=== PATIENT | male | born 1950 | race Caucasian/White ===

== ENCOUNTER 2022-02-08 12:43 | Emergency (ER) | payer MEDICARE, OTHER, SELFPAY ==
[2022-02-08] VITALS (17 sets, daily range): BP systolic 109–145; BP diastolic 56–72; PULSE 91–102; RESP 12–25; TEMP 36.7; O2SAT 88–100; BMI 31.8
--- NOTE | 2022-02-08 13:08 | DI.RAD.S_ITS ---
PROCEDURE: XR CHEST 2V INDICATIONS: shortness of breath TECHNIQUE: 2 views of the chest were acquired. COMPARISON: None. FINDINGS: Surgical changes and devices: Right-sided Port-A-Cath is present distal tip projecting over the proximal SVC. Lungs and pleura: Diffuse bilateral pulmonary opacities. Mediastinum: Mediastinal contours are normal. Heart size is normal. Bones and chest wall: No suspicious bony abnormalities. Soft tissues appear unremarkable. IMPRESSION: Diffuse bilateral pulmonary opacities could represent widespread pneumonia. However, other etiologies such as interstitial mass lesions and/or effusions cannot be excluded. Dictated by: Galina Lopez M.D. on 02/08/2022 at 14:19 Approved by: Galina Lopez M.D. on 02/08/2022 at 14:19
[2022-02-08 13:40] LABS: Add Manual Diff / Slide Review NO; Basophils Absolute Auto 0 /uL (0-100); Eosinophils Absolute Auto 100 /uL (0-450); Eosinophils Percent Auto 1.2 % (2-4); Hematocrit 31.2 % (41-53); Hemoglobin 10.3 g/dL (13.5-17.5); Lymphocytes Absolute Auto 400 /uL (1100-4500); Lymphocytes Percent Auto 8.6 % (25-40); Mean Corpuscular Hemoglobin 26.4 PG (26-34); Mean Corpuscular Volume 79.8 fL (80-100); Monocytes Absolute Auto 200 /uL (0-900); Monocytes Percent Auto 4.5 % (3-14); Neutrophils Absolute Auto 3700 /uL (1500-7000); Neutrophils Percent Auto 84.7 % (50-75); Platelet Count 202 X10^3/uL (150-400); White Blood Cell Count 4.4 X10^3/uL (4.5-11.0)
[2022-02-08 13:55] LABS: Lactate (Lactic Acid) 2.2 mmol/L (0.7-2.1)
[2022-02-08 13:57] LABS: Alanine Aminotransferase 14 IU/L (<50); Albumin 3.6 g/dL (3.5-5.0); Albumin Globulin Ratio 1.4 (1.0-2.8); Alkaline Phosphatase 207 U/L (38-126); Aspartate Aminotransferase 46 IU/L (17-59); BUN Creatinine Ratio 16.3 (6-22); Bilirubin Total 0.2 mg/dL (0.2-1.3); Blood Urea Nitrogen 21 mg/dL (9-20); Calcium 8.4 mg/dL (8.4-10.2); Carbon Dioxide 28 mmol/L (22-32); Chloride 101 mmol/L (98-107); Estimated Glomerular Filt Rate 59 mL/min (>60); Globulin 2.5 g/dL (1.7-4.1); Glucose 127 mg/dL (80-110); HEMOLYSIS < 15 (0-50); Potassium 4.7 mmol/L (3.4-5.1); Sodium 136 mmol/L (137-145); Total Protein 6.1 g/dL (6.3-8.2)
[2022-02-08 14:06] LABS: NT-proBNP (BNP-Adult 18+) 144 pg/mL (<125); Troponin I < 0.012 ng/mL (0.01-0.034)
--- NOTE | 2022-02-08 14:10 | PC.NURSE ---
Triage nurse CD asked that I request records for this patient at [facility] for recent admission. In talking to the patient they believe they were admitted 01/29/22 and discharged 02/02/22. I printed [facility] authorization to release protected health information. I filled out the document and explained what the document was to the patient and his . The patient signed the document and the signed it as the witness. I faxed the request to [phone] the designated medical records line.
[2022-02-08 15:37] LABS: Reflexed Lactate in 2 Hours Y
--- NOTE | 2022-02-08 17:12 | ED_ITS ---
HPI - General Adult General Chief complaint: Shortness of Breath/Dyspnea Stated complaint: Edema, Spreading Time Seen by Provider: 02/08/22 16:33 Source: patient and family Mode of arrival: Wheelchair Related Data Previous Rx's Medication Instructions Recorded furosemide 40 mg tablet (Lasix) 40 mg PO BID 5 Days #10 tab 02/08/22 Allergies Allergy/AdvReac Type Severity Reaction Status Date / Time Penicillins Allergy Verified 02/08/22 13:07 Review of Systems Review of Systems ROS Unobtainable: All systems reviewed & are unremarkable except as noted in HPI and below Patient History Social History Smoking Status: Former smoker Smoking Status: Former smoker alcohol intake frequency: holidays/special occasions only Substance Use Type: does not use Exam Narrative Exam Narrative: GENERAL: Alert and oriented x three, elderly male in mild distress. HEENT: Head normocephalic, atraumatic, EOMI, pupils reactive, face symmetric, moist mucous membranes NECK: Supple, full range of motion CARDIOVASCULAR: Regular rate and rhythm without murmurs, rubs or gallops. Mild JVD. RESPIRATORY: Breath sounds equal bilaterally, no wheezes rales or rhonchi. No tachypnea accessory muscle use. ABDOMEN: Soft, nontender. Normoactive bowel sounds all 4 quadrants. No guarding or rebound, rigidity, no mass : No CVA tenderness EXTREMITIES: Normal range of motion, patient has 2+ bilateral lower extremity edema, edema extends up into the scrotum and lower back as well. Neurovascularly intact NEUROLOGICAL: Cranial nerves II through XII grossly intact. Moving all extremities SKIN: Warm, dry, no petechiae, no rashes or lesions. Initial Vital Signs Initial Vital Signs: Vital Signs Temperature 98.1 F 02/08/22 12:50 Pulse Rate 97 H 02/08/22 12:50 Respiratory Rate 20 02/08/22 12:50 Blood Pressure 139/68 02/08/22 12:50 Pulse Oximetry 100 02/08/22 12:50 Course Orders Ordered: Discontinued Medications Furosemide (Furosemide 40 Mg/4 Ml Vial) 40 mg IV NOW ONE Stop: 02/08/22 19:19 Last Admin: 02/08/22 19:22 Dose: 40 mg Documented by: KARO Heparin Sodium (Porcine) (Heparin 500 Unit/5 Ml Port Flush) 500 unit IV PRN PRN PRN Reason: Flush Last Admin: 02/08/22 19:22 Dose: 500 unit Documented by: KARO Reevaluation(s) Reevaluation #1: Reviewed patient's labs and findings. His visit at [place] at the beginning of the month patient summary was obtained and shows that patient had possible pneumonia but had changes on imaging concerning for neoplastic cause of his pneumonia, patient was not found to be in true CHF but was given a diuretic and discharged home on oral antibiotics as well as diuretic. He is supposed to be seen at [facility] in [place] next week to have scans in order to be entered into a trial for his metastatic prostate cancer. Currently visiting the area while waiting to have his scans placed. Vital Signs Vital signs: Vital Signs - 8 hr 02/08/22 12:50 02/08/22 13:13 02/08/22 13:30 Temperature 98.1 F Pulse Rate 97 H 96 H 96 H Respiratory Rate 20 18 Blood Pressure 139/68 112/56 L Pulse Oximetry 100 97 98 02/08/22 14:30 02/08/22 14:34 02/08/22 15:00 Temperature Pulse Rate 96 H 100 H 97 H Respiratory Rate 17 20 22 Blood Pressure 145/72 H 129/71 Pulse Oximetry 96 98 100 02/08/22 15:30 Temperature Pulse Rate 95 H Respiratory Rate 16 Blood Pressure Pulse Oximetry 95 Medical Decision Making Lab Data Result diagrams: 02/08/22 13:30 02/08/22 13:30 Labs: Lab Results 02/08/22 02/08/22 02/08/22 Range/Units 13:30 13:30 13:30 WBC 4.4 L (4.5-11.0) X10^3/uL RBC 3.90 L (4.5-5.9) X10^6/uL Hgb 10.3 L (13.5-17.5) g/dL Hct 31.2 L (41-53) % MCV 79.8 L (80-100) fL MCH 26.4 (26-34) PG MCHC 33.0 (30-36) % RDW 17.0 H (11.6-14.8) % Plt Count 202 (150-400) X10^3/uL Neut % (Auto) 84.7 H (50-75) % Lymph % (Auto) 8.6 L (25-40) % [place] % (Auto) 4.5 (3-14) % Eos % (Auto) 1.2 L (2-4) % Baso % (Auto) 1.0 (0-2) % Neut # (Auto) 3700 (2512-3917) /uL Lymph # (Auto) 400 L (4564-3420) /uL [place] # (Auto) 200 (0-900) /uL Eos # (Auto) 100 (0-450) /uL Baso # (Auto) 0 (0-100) /uL Sodium 136 L (137-145) mmol/L Potassium 4.7 (3.4-5.1) mmol/L Chloride 101 (98-107) mmol/L Carbon Dioxide 28 (22-32) mmol/L BUN 21 H (9-20) mg/dL Creatinine 1.29 H (0.66-1.25) mg/dL Estimated GFR 59 L (>60) mL/min BUN/Creatinine Ratio 16.3 (6-22) Glucose 127 H (80-110) mg/dL Lactate 2.2 H (0.7-2.1) mmol/L Calcium 8.4 (8.4-10.2) mg/dL Total Bilirubin 0.2 (0.2-1.3) mg/dL AST 46 (17-59) IU/L ALT 14 (<50) IU/L Alkaline Phosphatase 207 H (38-126) U/L Troponin I (0.01-0.034) ng/mL NT-Pro-B Natriuret Pep (<125) pg/mL Total Protein 6.1 L (6.3-8.2) g/dL Albumin 3.6 (3.5-5.0) g/dL Globulin 2.5 (1.7-4.1) g/dL Albumin/Globulin Ratio 1.4 (1.0-2.8) SARS-CoV-2 (PCR) (Negative) 02/08/22 02/08/22 02/08/22 Range/Units 13:30 16:12 17:26 WBC (4.5-11.0) X10^3/uL RBC (4.5-5.9) X10^6/uL Hgb (13.5-17.5) g/dL Hct (41-53) % MCV (80-100) fL MCH (26-34) PG MCHC (30-36) % RDW (11.6-14.8) % Plt Count (150-400) X10^3/uL Neut % (Auto) (50-75) % Lymph % (Auto) (25-40) % [place] % (Auto) (3-14) % Eos % (Auto) (2-4) % Baso % (Auto) (0-2) % Neut # (Auto) (4134-5993) /uL Lymph # (Auto) (7164-1673) /uL [place] # (Auto) (0-900) /uL Eos # (Auto) (0-450) /uL Baso # (Auto) (0-100) /uL Sodium (137-145) mmol/L Potassium (3.4-5.1) mmol/L Chloride (98-107) mmol/L Carbon Dioxide (22-32) mmol/L BUN (9-20) mg/dL Creatinine (0.66-1.25) mg/dL Estimated GFR (>60) mL/min BUN/Creatinine Ratio (6-22) Glucose (80-110) mg/dL Lactate 2.0 (0.7-2.1) mmol/L Calcium (8.4-10.2) mg/dL Total Bilirubin (0.2-1.3) mg/dL AST (17-59) IU/L ALT (<50) IU/L Alkaline Phosphatase (38-126) U/L Troponin I < 0.012 (0.01-0.034) ng/mL NT-Pro-B Natriuret Pep 144 H (<125) pg/mL Total Protein (6.3-8.2) g/dL Albumin (3.5-5.0) g/dL Globulin (1.7-4.1) g/dL Albumin/Globulin Ratio (1.0-2.8) SARS-CoV-2 (PCR) Negative (Negative) Imaging Data Chest x-ray: Radiologist's Impression: Close Chest X-Ray (Signed) Galina Lopez - 02/08/[address] [address] XRay Report Signed Patient: Alon Rios MR#: [id number] : 1950 Acct:[id number] Age/Sex: 71 / M Date of Service: 02/08/22 Loc: ED Accession Number: [id number] ?? Procedure: XR chest 2V Ordering Provider: Michelle Padilla D.O. PROCEDURE:? XR CHEST 2V ? INDICATIONS:? shortness of breath ? TECHNIQUE:? 2 views of the chest were acquired.? ? COMPARISON:? None. ? FINDINGS:? ? Surgical changes and devices:? Right-sided Port-A-Cath is present distal tip projecting over the proximal SVC. ? Lungs and pleura:? Diffuse bilateral pulmonary opacities. ? Mediastinum:? Mediastinal contours are normal.? Heart size is normal.? ? Bones and chest wall:? No suspicious bony abnormalities.? Soft tissues appear unremarkable.? ? IMPRESSION:? Diffuse bilateral pulmonary opacities could represent widespread pneumonia.? However, other etiologies such as interstitial mass lesions and/or effusions cannot be excluded. ? ? Dictated by: Galina Lopez M.D. on 02/08/2022 at 14:19 ? ? Approved by: Galina Lopez M.D. on 02/08/2022 at 14:19?? ECG Data Attestation: I personally reviewed and interpreted this ECG as follows: Interpretation: Sinus rhythm, rate of 98, P are 164 QRS of 98 QTC 454. Patient is left axis deviation. No acute ST elevation depression noted. No priors for comparison. MDM Narrative Medical decision making narrative: This is a 71-year-old male with known metastatic prostate cancer. Patient has had appears to be a bump in his creatinine was 0.9 on January 22 these 1.29 today he has been on Lasix since his discharge, CT this does show any new obstructive changes clearly I suspect it is more related to his medications. He is quite ed ematous his BNP is normal, no acute EKG or troponin changes. He is not hypoxic, tachycardic or having other significant changes. CT angio was included no signs of PE. Patient is anemic, no signs of sepsis. COVID negative. Discussed with patient offered observation they would like to return home they are staying locally with friends. He was given a disc with his images as he is supposed to be seen at [facility] in order to have scanning to be enrolled in a trial. His chest x-ray shows possible pneumonia but I suspect this is more neoplastic and he has a large hilar mass, these findings were discussed with the patient and we discussed antibiotic but ultimately held these as less likely to be an infectious cause at the moment. Patient was given strict return precautions. He was asked to have his creatinine rechecked this week, he can follow with his physician he is established with at [facility] a her return to our cells is his primary care physician is in [place], [place] in [place]. Patient feels comfortable with this plan is at bedside also expresses her understanding and comfort. Discharge Plan Departure Patient Disposition: Home Clinical Impression: Bilateral lower extremity edema, Creatinine elevation Activity Restrictions/Additional Instructions: Your imaging today shows no blood clots but changes in the perihilar or chest region and bronchoscopy is recommended. The ureteral stent on the left appears in place, no obvious obstructions to the kidney today. There is a disc of your images with the CT angiography of your chest and CT of your abdomen and pelvis included. Your labs do not reflect changes consistent with congestive heart failure but I do think diuretics would be helpful. You may increase your Lasix to 40 mg twice daily. As discussed this can make your renal function were so your creatinine needs to be rechecked by Friday or Friday. You can return here for recheck, additional option would include contacting [facility] and they may be able to order repeat labs as an outpatient. Prescription was sent to [facility]. Please return for worsening symptoms rapidly worsening swelling, new chest pain, shortness of breath, lightheadedness or passing out, difficulty with urination or other new or concerning symptoms. Prescriptions: New furosemide [Lasix] 40 mg tablet 40 mg PO BID 5 Days Qty: 10 0RF Referrals: Miscellaneous,Doctor, MD [Primary Care Provider] -
--- NOTE | 2022-02-08 17:39 | DI.CT.S_ITS ---
PROCEDURE: CT KIDNEY URETER BLADDER (KUB) INDICATIONS: back pain, dheeraj, known ureteral stent TECHNIQUE: Axial sections were acquired from the lung bases to the pubic symphysis. Coronal and sagittal reformats were performed. For radiation dose reduction, the following was used: automated exposure control, adjustment of mA and/or kV according to patient size. COMPARISON: [facility], CT, CT ANGIO CHEST PE PROTOCOL, 02/08/2022, 17:45. FINDINGS: Image quality: Excellent. Lung bases: Bibasilar airspace opacity and pulmonary nodules are present. Left perihilar mass. Mediastinal and hilar adenopathy is present. Heart: Calcification of the coronary vasculature. URINARY: Moderate right hydronephrosis. Right proximal ureter is dilated. Left ureteral stent is present. Mild left hydronephrosis is present. Bladder: Normal wall thickness. No stones. ABDOMEN: Liver: Unremarkable. Gallbladder: Unremarkable. Biliary ducts: Unremarkable. Pancreas: Unremarkable. Spleen: Unremarkable. Adrenal Glands: Unremarkable. Stomach and Bowel: Stomach, small bowel loops, and colon are unremarkable. Peritoneum: No abnormal intraperitoneal fluid. No free air. Ventral Wall: No hernia. Abdominal Nodes: Multiple pathologically enlarged retroperitoneal lymph nodes are present, largest of which is in the left periaortic location measuring 22 mm. Scattered calcifications within a few of the enlarged retroperitoneal lymph nodes are present. Vessels: Aorta and inferior vena cava are normal in size. PELVIS: Pelvic Organs: Unremarkable. Prostate is removed. Pelvic Nodes: Unremarkable. Miscellaneous: No inguinal hernias are seen. Bones: Multiple sclerotic foci within the lumbar spine, pelvis, lower thoracic spine, and ribs. IMPRESSION: 1. Retroperitoneal adenopathy. 2. Right hydronephrosis. 3. Mild left hydronephrosis, status post left ureteral stent placement. 4. Multiple bony metastases. Dictated by: Gail Cardoza M.D. on 02/08/2022 at 18:28 Approved by: Gail Cardoza M.D. on 02/08/2022 at 18:31
--- NOTE | 2022-02-08 17:39 | DI.CT.S_ITS ---
PROCEDURE: CT ANGIO CHEST PE PROTOCOL INDICATIONS: sob, swelling b/l lower ext. TECHNIQUE: After the administration of intravenous contrast, 2 mm thick sections acquired from the pulmonary apices to the posterior costophrenic angles. 3-dimensional maximum intensity projection (MIP) coronal and sagittal reformats were then acquired through the thorax. For radiation dose reduction, the following was used: automated exposure control, adjustment of mA and/or kV according to patient size. COMPARISON: [facility], CT, CT KIDNEY URETER BLADDER (KUB), 02/08/2022, 17:45. FINDINGS: Image quality: Excellent. Pulmonary arteries: Pulmonary arteries are narrowed secondary to surrounding perihilar adenopathy, and demonstrate no intraluminal filling defects to suggest central pulmonary embolism. Lungs and pleura: No pleural effusions or pneumothorax. There is moderate patchy bibasilar the predominant pulmonary opacity. Scattered masslike densities within the bilateral lung parenchyma are present, largest of which is in the left lung base measuring 34 mm diameter. There is moderate narrowing of the bronchi of the bilateral upper and lower lobes as well as the right middle lobe. Mediastinum: Heart size is normal, without pericardial effusion. Calcification of the coronary vasculature is present. Multiple pathologically enlarged mediastinal and hilar lymph nodes are present, largest of which are in the right paratracheal location measuring 20 mm short axis, the prevascular location measuring 20 mm short axis, the right hilar location measuring 20 mm short axis, subcarinal location measuring 16 mm short axis. There is a left perihilar mass measuring roughly 80 mm diameter which in circles the left upper and lower lobe bronchi as well as the left upper and lower lobe pulmonary arterial branches. Thoracic aorta is normal in caliber and enhancement. Esophagus is normal in caliber, without hiatal hernia. Bones and chest wall: Multiple sclerotic densities within the sternum, thoracolumbar spine, ribs, clavicles, and scapulae. Ribs and thoracic spine appear intact throughout. Thyroid gland is grossly unremarkable. No axillary or supraclavicular adenopathy. Abdomen: Visualized portions of the upper abdomen demonstrate moderate right hydronephrosis. There is a left ureteral stent present. IMPRESSION: 1. No pulmonary embolus. 2. Left perihilar mass associated with pathologic mediastinal hilar adenopathy, suggestive of malignancy. Initial further assessment with bronchoscopy is recommended. 3. Bilateral pulmonary metastasis. 4. Bilateral pneumonia/post obstructive phenomenon. 5. Right hydronephrosis. 6. Severe degree of bony metastatic disease. Dictated by: Gail Cardoza M.D. on 02/08/2022 at 18:22 Approved by: Gail Cardoza M.D. on 02/08/2022 at 18:26
[2022-02-08 18:04] LABS: COVID19 -Nasal RAPID Negative (Negative)
[2022-02-08] MEDS: FUROSEMIDE 40 MG/4 ML VIAL IV (19:22)
== END 2022-02-08 19:47 | disposition home or self-care (01) ==
PROVIDERS: Emergency Provider Emergency Medicine
DX: R60.0 Localized edema (principal); R79.89 Other specified abnormal findings of blood chemistry; R06.02 Shortness of breath; Z20.822 Contact with and (suspected) exposure to COVID-19
CPT/HCPCS: 36415; 71046; 71275; 74176; 80053; 83605; 83880; 84484; 85025; 87070; 87205; 87635; 93005; 96374; 99284; C9803; J1642; J1940; Q9967

== ENCOUNTER → 2022-02-12 11:30 | Outpatient (CLI) | payer MEDICARE, OTHER, SELFPAY ==
[2022-02-12 13:04] LABS: Albumin 3.8 g/dL (3.5-5.0); BUN Creatinine Ratio 17.7 (6-22); Blood Urea Nitrogen 25 mg/dL (9-20); Calcium 8.8 mg/dL (8.4-10.2); Carbon Dioxide 30 mmol/L (22-32); Chloride 98 mmol/L (98-107); Estimated Glomerular Filt Rate 53 mL/min (>60); Glucose 121 mg/dL (80-110); HEMOLYSIS < 15 (0-50); Phosphorous 3.9 mg/dL (2.3-3.7); Potassium 4.7 mmol/L (3.4-5.1); Sodium 135 mmol/L (137-145)
== END ==
PROVIDERS: Referring Provider Physician Assistant; Visit Provider Physician Assistant
DX: C61 Malignant neoplasm of prostate (principal)
CPT/HCPCS: 36415; 80069